=== PATIENT | female | born 1980 | race Caucasian/White ===

== ENCOUNTER 2025-02-26 13:40 | Outpatient (RCR) | payer BC, SELFPAY ==
[2025-02-26 13:50] VITALS: BP 171/93
[2025-02-26 14:01] VITALS: BMI 55.0
[2025-02-26] MEDS: BENLYSTA 250 MG IV (14:15)
[2025-02-26 15:15] VITALS: BP 132/70
== END 2025-02-27 09:39 | disposition home or self-care (01) ==
LOC: OID 13:40
PROVIDERS: ATTENDING PHYSICIAN Internal Medicine; FAMILY PHYSICIAN Family Medicine
DX: M32.9 Systemic lupus erythematosus, unspecified (principal)
CPT/HCPCS: 96365; J0490

== ENCOUNTER 2025-03-27 13:27 | Outpatient (RCR) | payer BC, SELFPAY ==
[2025-03-13 14:30] VITALS: BP 184/74
[2025-03-13] MEDS: ZOFRAN 4 MG IV (14:39)
[2025-03-13] MEDS: BENLYSTA 250 MG IV (14:39)
[2025-03-13 15:00] VITALS: BP 140/72
[2025-03-13 16:04] VITALS: BP 163/81
[2025-03-27 13:35] VITALS: BP 123/71
[2025-03-27] MEDS: BENLYSTA 250 MG IV (14:02)
[2025-03-27] MEDS: ZOFRAN 4 MG IV (14:05)
== END 2025-03-30 10:36 | disposition home or self-care (01) ==
LOC: OID 13:27
PROVIDERS: ATTENDING PHYSICIAN Internal Medicine; FAMILY PHYSICIAN Family Medicine
DX: M32.9 Systemic lupus erythematosus, unspecified (principal)
CPT/HCPCS: 96365; 96374; 96375; J0490

== ENCOUNTER 2025-04-24 13:58 | Outpatient (RCR) | payer BC, SELFPAY ==
[2025-04-24 14:26] VITALS: BP 152/75
[2025-04-24] MEDS: ZOFRAN 4 MG IV (14:46)
[2025-04-24] MEDS: BENLYSTA 250 MG IV (14:47)
[2025-04-24 16:01] VITALS: BP 168/73
== END 2025-04-27 08:46 | disposition home or self-care (01) ==
LOC: OID 13:58
PROVIDERS: ATTENDING PHYSICIAN Internal Medicine; FAMILY PHYSICIAN Family Medicine
DX: M32.9 Systemic lupus erythematosus, unspecified (principal)
CPT/HCPCS: 96365; 96375; J0490